=== PATIENT | male | born 1990 | race Caucasian/White ===

== ENCOUNTER 2016-08-05 14:22 | Emergency (ER) | payer MEDICAID | END 2016-08-05 17:55 | disposition home or self-care (01) | LOC: D.ER 14:22 | DX: M72.2 Plantar fascial fibromatosis (principal); M21.41 Flat foot [pes planus] (acquired), right foot; F41.9 Anxiety disorder, unspecified; I10 Essential (primary) hypertension; F31.9 Bipolar disorder, unspecified; F43.10 Post-traumatic stress disorder, unspecified ==